=== PATIENT | female | born 1990 | race Caucasian/White ===

== ENCOUNTER 2023-08-09 16:18 | Emergency (ER) | payer SELFPAY ==
[~2023-08-09] VITALS: Ht 157.5 cm; Wt 50.0 kg
[2023-08-09 16:22] VITALS: TEMP 97.7
[2023-08-09 16:52] LABS: BASOPHILS # (AUTO) 0.1 X10'3 (0-0.2); BASOPHILS % (AUTO) 0.6 % (0-1); EOSINOPHILS % (AUTO) 0.2 % (0-6); HEMATOCRIT 47.3 % (35.0-45.0); HEMOGLOBIN 16.3 g/dl (12.0-16.0); LYMPHOCYTES # (AUTO) 1.6 X10'3 (1.1-4.8); LYMPHOCYTES % (AUTO) 17.9 % (21-51); MEAN CORPUSCULAR HEMOGLOBIN 36.9 PG (27.0-31.0); MEAN CORPUSCULAR HGB CONC 34.6 g/dL (33.0-36.5); MEAN CORPUSCULAR VOLUME 106.7 FL (78-98); MEAN PLATELET VOLUME 8.5 FL (7.4-10.4); MONOCYTES # (AUTO) 0.4 X10'3 (0-0.9); MONOCYTES % (AUTO) 4.7 % (2-12); NEUTROPHILS # (AUTO) 6.9 X10'3 (1.8-7.7); NEUTROPHILS % (AUTO) 76.6 % (42-75); PLATELET COUNT 131 X10'3 (140-440); RED BLOOD COUNT 4.43 X10'6 (4.20-5.60); RED CELL DISTRIBUTION WIDTH 14.1 % (11.5-14.5)
[2023-08-09 17:06] LABS: ALANINE AMINOTRANSFERASE 72 U/L (12-78); ALBUMIN 3.7 G/DL (3.4-5.0); ALBUMIN/GLOBULIN RATIO 0.9 (1.1-1.5); ALKALINE PHOSPHATASE 135 IU/L (46-116); ANION GAP 10 (8-16); ASPARTATE AMINO TRANSFERASE 193 U/L (10-37); BILIRUBIN,TOTAL 2.1 MG/DL (0.1-1.0); BLOOD UREA NITROGEN 2 MG/DL (7-18); CALCIUM 8.9 MG/DL (8.5-10.1); CHLORIDE 97 MMOL/L (99-107); CREATININE 0.67 MG/DL (0.40-0.90); GLUCOSE 188 MG/DL (70-104); POTASSIUM 3.5 MMOL/L (3.5-5.1); SODIUM 136 MMOL/L (135-145); TOTAL CARBON DIOXIDE 29.4 MMOL/L (24-32); TOTAL PROTEIN 7.9 G/DL (6.4-8.2); eCRCL 96 ML/MIN; eGFR > 90 ML/MIN
[2023-08-09 17:15] LABS: PRO BRAIN NATRIURETIC PEPTIDE 70 PG/ML (0-125)
[2023-08-09 22:30] VITALS: BP 141/93; PULSE 73; RESP 14
[2023-08-09 22:31] VITALS: O2SAT 100
[2023-08-09 23:02] LABS: D-DIMER 0.47 MG/L FEU (0-0.50)
[2023-08-09] MEDS ORDERED: iohexol 350MG/ML 100ml bottle IV ONE (23:12)
[2023-08-09 23:18] LABS: HCG SERUM QL NEGATIVE
[2023-08-09] MEDS ORDERED: normal saline 1000ML IV soln IVB ONE (23:25)
[2023-08-09 23:30] LABS: ALANINE AMINOTRANSFERASE 71 U/L (12-78); ALBUMIN 3.6 G/DL (3.4-5.0); ALBUMIN/GLOBULIN RATIO 0.9 (1.1-1.5); ALKALINE PHOSPHATASE 128 IU/L (46-116); ANION GAP 15 (8-16); BILIRUBIN,TOTAL 2.7 MG/DL (0.1-1.0); BLOOD UREA NITROGEN 2 MG/DL (7-18); BUN/CREATININE RATIO 2.9 (10.0-20.0); CALCIUM 8.8 MG/DL (8.5-10.1); CHLORIDE 95 MMOL/L (99-107); CREATININE 0.69 MG/DL (0.40-0.90); GLUCOSE 141 MG/DL (70-104); SODIUM 134 MMOL/L (135-145); TOTAL CARBON DIOXIDE 23.9 MMOL/L (24-32); TOTAL PROTEIN 7.8 G/DL (6.4-8.2); eCRCL 93 ML/MIN; eGFR > 90 ML/MIN
[2023-08-09 23:36] LABS: ASPARTATE AMINO TRANSFERASE 187 U/L (10-37)
[2023-08-09 23:37] LABS: THYROID STIMULATING HORMONE 1.12 ulU/ml (0.34-4.50)
[2023-08-09 23:38] LABS: POTASSIUM 2.9 MMOL/L (3.5-5.1)
[2023-08-09] MEDS ORDERED: potassium Cl 20 mEq SR tablet PO ONE (23:40)
[2023-08-10 00:24] LABS: BILIRUBIN,URINE NEGATIVE (Neg); CLARITY,URINE SLIGHTLY CLOUDY (Clear); COLOR,URINE YELLOW (Yellow); GLUCOSE, URINE NEGATIVE (Neg); KETONES,URINE NEGATIVE (Neg); LEUKOCYTE ESTERASE ,URINE NEGATIVE (Neg); NITRITES, URINE POSITIVE (Neg); OCCULT BLOOD,URINE NEGATIVE (Neg); PROTEIN,URINE 30 mg/dl (Neg); UROBILINOGEN,URINE 0.2 E.U/dL (0.2-1.0)
[2023-08-10 00:30] LABS: UA COLLECTION TYPE CLN CATCH MIDSTREAM
[2023-08-10 00:34] LABS: BACTERIA,URINE 4+ /HPF (Neg); MUCUS STRANDS NONE SEEN /LPF (Neg); RBC,URINE 0-2 /HPF (0-2); SQUAMOUS EPITHELIAL CELL,UR MANY /LPF (FEW)
[2023-08-10 00:36] LABS: TRANSITIONAL EPI CELLS,URINE FEW /HPF; WBC,URINE 0-4 /HPF (0-4)
[2023-08-10 00:45] LABS: URINE AMPHETAMINE SCREEN NEGATIVE (Neg); URINE BARBITUATE SCREEN NEGATIVE (Neg); URINE BENZODIAZEPINES SCREEN NEGATIVE (Neg); URINE CANNABINOID SCREEN POSITIVE (Neg); URINE COCAINE SCREEN NEGATIVE (Neg); URINE METHADONE SCREEN NEGATIVE (Neg); URINE OPIATE SCREEN NEGATIVE (Neg); URINE PHENCYCLIDINE SCREEN NEGATIVE (Neg)
[2023-08-10] MEDS ORDERED: POTA-207 PO (02:07)
--- NOTE | 2023-08-10 02:26 | NUR ---
iv dc'd pt being discharge dressing applied
== END 2023-08-10 02:27 | disposition home or self-care (01) ==
LOC: ER 16:20
DX: R06.02 Shortness of breath (principal); Z20.822 Contact with and (suspected) exposure to COVID-19; E87.6 Hypokalemia; R07.9 Chest pain, unspecified
CPT/HCPCS: 36415; 71045; 71275; 80053; 80305; 80320; 81001; 82948; 83605; 83880; 84145; 84443; 84484; 84703; 85025; 85379; 87040; 87077; 87186; 87502; 87503; 87811; 93005; 96360; 99285; J7030; Q9967

== ENCOUNTER 2025-07-20 11:14 | Inpatient (IN) | payer MEDICAID ==
[~2025-07-20] VITALS: Ht 160 cm; Wt 53.3 kg
[2025-07-20 11:52] LABS: MEAN PLATELET VOLUME 8.1 FL (7.4-10.4); RED CELL DISTRIBUTION WIDTH 14.9 % (11.5-14.5)
[2025-07-20 12:07] LABS: CREATININE 0.69 MG/DL (0.40-0.90); TOTAL CARBON DIOXIDE 24.7 MMOL/L (24-32); eCRCL 96 ML/MIN; eGFR > 90 ML/MIN
[2025-07-20 12:11] LABS: EOSINOPHILS % (MANUAL) 1.0 % (0-6); LYMPHOCYTES % (MANUAL) 4.0 % (21-51); MONOCYTES % (MANUAL) 3.0 % (2-12); NEUTROPHILS % (MANUAL) 92.0 % (42-75); PLATELET ESTIMATE NORMAL
--- NOTE | 2025-07-20 12:26 | Physician Documentation ---
History of Present Illness Chief Complaint: Abdominal Pain Stated Complaint: ABD SWELLING Time Seen by MD: 12:04 OK to notify your PCP?: Yes Primary Medical Doctor: none Source: patient Mode of Arrival: POV Exam Limitations: no limitations HPI 34-year-old female with chief complaint right upper quadrant abdominal pain which started three weeks ago and got progressively worse over the past week which is why she decided to come in today. She states that the pain is worse if she tries to eat or drink anything. The pain will become almost unbearable after eating or drinking. She has never had any abdominal surgeries. She denies any vomiting, diarrhea or constipation. She does report a history of alcoholism but has been sober for "3months working on 4". No known liver disease. No fever, chills, shortness of breath, chest pain, urinary symptoms, LE edema. Uses marijuana but denies any other drug abuse. Patient has not noticed any discoloration of her eyes or skin despite having scleral icterus and petechiae. Medication Reconciliation Allergies: Coded Allergies: lobster (Verified Allergy, Unknown, THROAT ITCHY, 07/20/25) Past Medical History Past Medical History: No Pertinent History Past Surgical History: No History Of: abdominal surgery Alcohol Use: Sober Drug Use: marijuana Lives In: Home Review of Systems All Other Systems at this time: Reviewed and Negative Physical Exam Vital Signs: Temperature: 98.8, Source: Temporal, Heart Rate: 132, Respiratory Rate: 16, BP: 103/73, Pulse Oximetry: 96, Weight: 53.300 Oxygen Flow Rate: 0 Physical Exam GENERAL: CONVERSATION, PLEASANT FEMALE, ALERT, IN NAD. HEENT: NCAT, EOMI, PERRL, SCLERAL ICTERUS, normal oropharynx, moist oral mucosa. NECK: Supple, trachea midline. CARDIAC: ELEVATED RATE, Regular rhythm, no murmurs, rubs, or gallops. Equal distal pulses. No lower extremity edema, cap refill less than 2 seconds. RESPIRATORY: Equal breath sounds, clear to auscultation bilaterally, no respiratory distress. GASTROINTESTINAL: ABDOMEN IS DISTENDED BUT SOFT WITH +FLUID WAVE. TTP OVER RUQ, +MURPHYS SIGN, LIVER ENLARGED PALPABLE BELOW THE LOWER RIB. MUSCULOSKELETAL: Normal range of motion, nontender, no swelling. NEUROLOGICAL: Awake, alert, and oriented x 3. SKIN: Warm/dry, no pallor, PETECHIAE ARE ALL OVER FACE, UPPER CHEST AND ARMS. PSYCH: Alert and appropriate. Affect congruent with mood. Speech is clear. Good eye contact. Progress Progress Note MELD SCORE CALCULATED USING THE ORIGINAL FORMULA: 22 WHICH IS 19.6% MORTALITY IN 3MONTHS Results/Orders Reviewed/noted all lab results: Yes Results/Orders Orders - DIA FENG Electrocardiogram (07/20/25 12:16) MG (07/20/25 12:16) Culture Blood (07/20/25 12:16) Chest,Single View (07/20/25 12:16) Procalcitonin (07/20/25 12:16) Lacticsepsis (07/20/25 12:16) Ct Abdomen Pelvis (07/20/25 12:16) Normal Saline 1000ml (0.9% Sodium Chlori (07/20/25 12:20) Vital Signs 07/20/25 07/20/25 11:27 12:18 Temp 98.8 Pulse 141 132 Resp 18 16 B/P (MAP) 136/87 103/73 (83) Pulse Ox 97 96 O2 Flow Rate 0 Laboratory Tests Test 07/20/25 11:44 White Blood Count 25.4 *H Red Blood Count 3.22 L Hemoglobin 11.6 L Hematocrit 34.8 L Mean Corpuscular Volume 108.1 H Mean Corpuscular Hemoglobin 36.1 H Mean Corpuscular Hemoglobin Concent 33.4 Red Cell Distribution Width 14.9 H Platelet Count 181 Mean Platelet Volume 8.1 Neutrophils (%) (Auto) 85.2 H Lymphocytes (%) (Auto) 6.8 L Monocytes (%) (Auto) 7.1 Eosinophils (%) (Auto) 0.5 Basophils (%) (Auto) 0.4 Neutrophils # (Auto) 21.7 H Lymphocytes # (Auto) 1.7 Monocytes # (Auto) 1.8 H Eosinophils # (Auto) 0.1 Basophils # (Auto) 0.1 CBC Comment Differential Total Cells Counted 100 Neutrophils % (Manual) 92.0 H Lymphocytes % (Manual) 4.0 L Monocytes % (Manual) 3.0 Eosinophils % (Manual) 1.0 Platelet Estimate Normal Red Blood Cell Morphology Perf Hypochromasia 1+ Basophilic Stippling Macrocytosis 1+ Stomatocytes Few Sodium Level 135 Potassium Level 3.3 L Chloride Level 102 Carbon Dioxide Level 24.7 Anion Gap 8 Blood Urea Nitrogen 6 L Creatinine 0.69 Estimated GFR/1.73 m2 > 90 BUN/Creatinine Ratio 8.7 L Glucose Level 94 Calcium Level 8.1 L Total Bilirubin 10.3 H Aspartate Amino Transf (AST/SGOT) 96 H Alanine Aminotransferase (ALT/SGPT) 27 Alkaline Phosphatase 372 H Total Protein 7.3 Albumin 2.0 L Globulin 5.3 H Albumin/Globulin Ratio 0.4 L Lipase > 375 H Chemistry Comments EKG/XRAY/CT/US/VASC/MRI Chest X-Ray : Additional Comments CLINICAL HISTORY: SEPSIS TECHNIQUE: Single view of the chest was obtained. COMPARISON: CT CTA CHEST PE on DOS: 08/09/23, DI CHEST,SINGLE VIEW on DOS: 08/09/23 FINDINGS: The heart size and pulmonary vasculature normaln. There are bibasilar opacities. IMPRESSION: Bibasilar opacities, likely atelectases and or infection with small left pleural effusion. : Impression COMPUTERIZED TOMOGRAPHY ABDOMEN AND PELVIS WITH CONTRAST REASON FOR EXAM: ABD PAIN. Jaundice. COMPARISON: US ULTRASOUND OF ABDOMEN on DOS: 07/20/25 TECHNIQUE: The exam was performed on a Multidetector scanner. Spiral scans were acquired from the diaphragm to the symphysis pubis after administration of IV contrast. 2-D coronal and sagittal reformatted images were provided. Radiation optimization: All CT scans at this facility use at least one of these dose optimization techniques: Automated exposure control mA and/or kV adjustment per patient size (includes targeted exams where dose is matched to clinical indication) or iterative reconstruction. CONTRAST ADMINISTRATION: 100 mL omnipaque 300 intravenously RADIATION DOSE: CTDI: 9 mGy DLP: 462 mGy-cm FINDINGS: There is small left pleural effusion. There is partial consolidation of the left lower lobe of the lung. There is mild dependent atelectasis in the right lower lobe. The spleen is not enlarged. The liver is enlarged. There are numerous hypoenhancing nodular masses throughout the liver concerning for diffuse hepatocellular disease versus metastatic disease. There is a moderate amount of ascites. There is gallbladder wall thickening, nonspecific. No calcified gallstone is identified. There is heterogeneous hypoenhancement of the head and uncinate process of the pancreas. The body and tail of the pancreas are unremarkable. The pancreatic duct is not dilated. There are prominent lower esophageal varices. The adrenal glands are normal. The kidneys enhance symmetrically. No solid renal mass is identified. There is no hydronephrosis of either kidney. There is no abdominal aortic aneurysm. The uterus and ovaries are within normal limits. There is a large venous portosystemic shunt from the portal vein to the retroperitoneum. No pathologic lymphadenopathy is identified by size criteria. There is thickening of proximal jejunal loops that may represent portal hypertensive enteropathy. The urinary bladder is decompressed and is not well evaluated. The colonic stool burden is small. The appendix is not seen. No acute osseous abnormality is identified. IMPRESSION: Hypoenhancing nodular masses throughout the liver concerning for diffuse hepatocellular disease versus metastatic disease. Liver MRI without and with contrast is recommended. Moderate ascites Esophageal varices and other portosystemic venous shunts are seen consistent with portal hypertension. Thickened proximal jejunum may represent portal hypertensive enteropathy. Small left pleural effusion. Partial consolidation of the left lower lobe. Medical Decision Making Differential Dx:Considerations: Include: AAA, -Complete, - Incomplete, -Inevitable, -Missed, -Threatened, Abruptio placentae, Angina/AK, Aortic dissection, Appendicitis, Bowel obstruction, Chola ngitis, Cholelithasis, Constipation, Diverticular disease, Esophageal rupture, Esophagitis, Gastritis/PUD, Gastroenteritis, GI hemorrhage, Hernia, Hepatitis, Inflammatory BD, Ischemic bowel, Ovarian cyst/torsion, Pancreatitis, PID, Porphyria, Trauma, intraabdominal, Urinary obstruction, Urinary tract infection, Urolithiasis, Other Additional Comments Patient's u/s is negative for gallbladder etiology-no gallstones, no enlarged ducts. Patient's CT scan shows portal hypertension with varices, hepatomegaly and masses in liver. I have low suspicion for malignancy given history but will get MRI with liver protocol. Dr. Smith has agreed to accept the patient as long as patient's insurance will cover and assuming that patient does not have diagnosis of metastatic cancer. He wants cultures of urine, blood, and from ascites if possible. He wants zosyn as the antibiotic. He stated he will contact us on Wednesday or we can contact him on Wednesday for transfer. Departure Admitted to Inpatient Unit: to hospitalist Impression: Primary Impression: Decompensated liver disease Additional Impressions: RUQ abdominal pain Ascites Qualified Codes: R18.8 - Other ascites Jaundice Condition: Fair Referrals: NO PRIMARY CARE PROVIDER (PCP) Education Educated: Patient Educated regarding: diagnosis Signature Scribe Signature: X Attestation: DIA BROWN Jul 20, 2025 12:26
--- NOTE | 2025-07-20 12:28 | ELECTROCARDIOGRAPH REPORT ---
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 Ger Talamantes Measurements Intervals [place] Rate: 121 P: 67 NC: 135 QRS: 38 QRSD: 90 T: 16 QT: 333 QTc: 473 Interpretive Statements Sinus tachycardia Borderline T wave abnormalities Electronically Signed On 07-25-2025 19:23:[address] Ger Talamantes Please click the below link to view image of tracing.
[2025-07-20 12:58] LABS: APTT 34 SECONDS (22-32); INR 1.8 INR
[2025-07-20] MEDS: normal saline 1000ml 2,000 ML IV ONE (13:11)
--- NOTE | 2025-07-20 13:39 | RADIOLOGY REPORT ---
INDICATION: abdominal pain, jaundice TECHNIQUE: Multiple real-time sonographic images of the abdomen were obtained. COMPARISON: None FINDINGS: The liver is heterogeneous in echogenicity. The liver measures 21 cm. No intrahepatic biliary ductal dilatation is noted. The gallbladder wall measures 0.3 cm and is unremarkable. No gallstones or sludge is seen. The common duct measures 0.2 cm and is unremarkable. No pericholecystic fluid is noted. The right kidney measures 10cm. No hydronephrosis. The pancreas is not well visualized due to obscuration from bowel gas. The visualized portions of the IVC and aorta are grossly unremarkable. IMPRESSION: Hepatomegaly/hepatic steatosis. Small volume ascites.
--- NOTE | 2025-07-20 14:20 | RADIOLOGY REPORT ---
CLINICAL HISTORY: SEPSIS TECHNIQUE: Single view of the chest was obtained. COMPARISON: CT CTA CHEST PE on DOS: 08/09/23, DI CHEST,SINGLE VIEW on DOS: 08/09/23 FINDINGS: The heart size and pulmonary vasculature normaln. There are bibasilar opacities. IMPRESSION: Bibasilar opacities, likely atelectases and or infection with small left pleural effusion.
[2025-07-20 14:41] LABS: URINE HCG NEGATIVE (NEG)
[2025-07-20] MEDS ORDERED: iohexol 300mg/ml 100ml inj. ONE (14:43)
[2025-07-20 14:46] LABS: UA COLLECTION TYPE URINAL
[2025-07-20 14:47] LABS: MUCUS STRANDS MANY /LPF (Neg); SQUAMOUS EPITHELIAL CELL,UR MANY /LPF (FEW); URINE AMPHETAMINE SCREEN NEGATIVE (Neg); URINE BARBITUATE SCREEN NEGATIVE (Neg); URINE BENZODIAZEPINES SCREEN NEGATIVE (Neg); URINE CANNABINOID SCREEN POSITIVE (Neg); URINE COCAINE SCREEN NEGATIVE (Neg); URINE METHADONE SCREEN NEGATIVE (Neg); URINE OPIATE SCREEN NEGATIVE (Neg); URINE PHENCYCLIDINE SCREEN NEGATIVE (Neg)
--- NOTE | 2025-07-20 15:26 | RADIOLOGY REPORT ---
COMPUTERIZED TOMOGRAPHY ABDOMEN AND PELVIS WITH CONTRAST REASON FOR EXAM: ABD PAIN. Jaundice. COMPARISON: US ULTRASOUND OF ABDOMEN on DOS: 07/20/25 TECHNIQUE: The exam was performed on a Multidetector scanner. Spiral scans were acquired from the diaphragm to the symphysis pubis after administration of IV contrast. 2-D coronal and sagittal reformatted images were provided. Radiation optimization: All CT scans at this facility use at least one of these dose optimization techniques: Automated exposure control mA and/or kV adjustment per patient size (includes targeted exams where dose is matched to clinical indication) or iterative reconstruction. CONTRAST ADMINISTRATION: 100 mL omnipaque 300 intravenously RADIATION DOSE: CTDI: 9 mGy DLP: 462 mGy-cm FINDINGS: There is small left pleural effusion. There is partial consolidation of the left lower lobe of the lung. There is mild dependent atelectasis in the right lower lobe. The spleen is not enlarged. The liver is enlarged. There are numerous hypoenhancing nodular masses throughout the liver concerning for diffuse hepatocellular disease versus metastatic disease. There is a moderate amount of ascites. There is gallbladder wall thickening, nonspecific. No calcified gallsto ne is identified. There is heterogeneous hypoenhancement of the head and uncinate process of the pancreas. The body and tail of the pancreas are unremarkable. The pancreatic duct is not dilated. There are prominent lower esophageal varices. The adrenal glands are normal. The kidneys enhance symmetri jose. No solid renal mass is identified. There is no hydronephrosis of either kidney. There is no abdominal aortic aneurysm. The uterus and ovaries are within normal limits. There is a large venous portosystemic shunt from the portal vein to the retroperitoneum. No pathologic lymphadenopathy is identified by size criteria. There is thickening of proximal jejunal loops that may represent portal hypertensive enteropathy. The urinary bladder is decompressed and is not well evaluated. The colonic stool burden is small. The appendix is not seen. No acute osseous abnormality is identified. IMPRESSION: Hypoenhancing nodular masses throughout the liver concerning for diffuse hepatocellular disease versus metastatic disease. Liver MRI without and with contrast is recommended. Moderate ascites Esophageal varices and other portosystemic venous shunts are seen consistent with portal hypertension. Thickened proximal jejunum may represent portal hypertensive enteropathy. Small left pleural effusion. Partial consolidation of the left lower lobe.
[2025-07-20] MEDS: CefTRIAXone 2gm/D5W 50ml BAG 50 ML IV ONE (16:22)
[2025-07-20] MEDS ORDERED: magnesium Cl slow-release 64mg tablet PO PRN (18:50)
[2025-07-20] MEDS ORDERED: mag hydrox/Alum hydrox/simeth 30ml oral suspension PO PRN (18:50)
[2025-07-20] MEDS ORDERED: potassium Cl 20 mEq SR tablet PO PRN (18:50)
[2025-07-20] MEDS ORDERED: magnesium sulf-water 2g/50mL 50 ML IV PRN (18:50)
[2025-07-20] MEDS ORDERED: haloperidol lactate 5mg/ml inj IM PRN (18:50)
[2025-07-20] MEDS ORDERED: dextrose 50%-water 50ml dispensing syringe IV PRN (18:50)
[2025-07-20] MEDS ORDERED: potassium Cl 40MEQ/1/2NS 520ml 520 ML IV PRN (18:50)
[2025-07-20] MEDS ORDERED: magnesium sulf-water 4G/100mL 100 ML IV PRN (18:50)
[2025-07-20] MEDS ORDERED: diazepam inj 5 MG/ML inj. IV PRN (18:50)
[2025-07-20] MEDS ORDERED: ondansetron/PF 4mg/2ml inj IV PRN (18:50)
[2025-07-20] MEDS ORDERED: lactulose 20gm/30ml cup PO SCH (19:10)
[2025-07-20] MEDS ORDERED: pantoprazole 40MG/NS 100ML BAG 100 ML IV SCH (19:10)
[2025-07-20] MEDS ORDERED: CefTRIAXone/D5W-Rocephin 1gm 50 ML IV SCH (19:15)
[2025-07-20] MEDS: HYDROcodone/acetaminophen 5mg/325mg tablet PO PRN (19:16)
[2025-07-20] MEDS: lactulose 20gm/30ml cup PO SCH (19:16)
[2025-07-20] MEDS: normal saline 1000ml 1,000 ML IV SCH (19:17)
--- NOTE | 2025-07-20 19:18 | HISTORY AND PHYSICAL-Residence ---
History & Physical Providers to CC Resident Creating Document: JA RUBOI RES CC: ISABEL BRADFORD MD ~ History of Present Illness Primary Medical Doctor: none Reason for Admit\Complaint: Abdominal Pain History of Present Illness This is a 34-year-old female with past medical history of GERD, alcoholic use disorder, presented to ER with complaint of right upper quadrant pain since 2 weeks, she states that pain is constant and rates it 8/10 in intensity , hotbath improves her pain but pain never goes away completely, her pain radiates to the left upper quadrant and occasionally to the back. She denies any associated shortness of breath, chest pain,hematemesis, blood in stool or fever. In addition to that She is also experiencing bloating for the past three weeks. During this time she did not took anything for the pain. ED provider shannan diallo talked to [facility] [place] with [place]. Smith and he has agreed to accept the patient as long as patient's insurance will cover and assuming that patient does not have diagnosis of metastatic cancer. He wants cultures of urine, blood, and from ascites if possible. He wants zosyn as the antibiotic. He stated he will contact us on Wednesday or we can contact him on Wednesday for transfer. This is her 1st episode of abdominal pain. She has no PCP and Express Manager, she never had a colonoscopy and endoscopy. She is allergic to lobster, developed coughing and neck swelling She is also allergic to nickael, she developed rash while wearing nickel jewelery. Allergies: Coded Allergies: lobster (Verified Allergy, Unknown, THROAT ITCHY, 07/20/25) Home Medications Home Medications Active Past Medical History Past Medical History GERD Past Surgical History Surgical History Comment Denies any past surgical history. 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 ROS All Other Systems: Reviewed and Negative ROS Constitutional: No fever, chills, dizziness, weakness, weight gain or loss Eyes: No pain, erythema, discharge, blurring of vision ENT: No sore throat, epistaxis, tinnitus Cardiovascular: No chest pain, chest pressure, chest discomfort, palpitations, syncope, lower extremity edema, paroxysmal nocturnal dyspnea Respiratory: No shortness of breath, cough, hemoptysis Gastrointestinal: no nausea, no vomitting, mo melena or hematochezia, no constipation ,no diarrhea, reports pain in RUQ Genitourinary: No frequency, urgency, nocturia, hematuria or dysuria Musculoskeletal: No arthralgias or myalgias Integumentary: No change in skin, hair, nails,No swelling, abrasions. Neurologic: No headache, neck pain, numbness or tingling of the extremities, weakness Psychiatric: No delusions, depression,no hallucinations, no suicidal ideations Endocrine: No fatigue, weakness, polydipsia, polyuria, change in appetite, heat or cold intolerance, dry skin,no sweating Hematological: No bleeding, petechiae,bruises Exam Vitals: Vital Signs Date Time Temp Pulse Resp B/P (MAP) Pulse Ox O2 Delivery O2 Flow Rate FiO2 07/20/25 18:49 98.8 125 18 121/68 (85) 99 0 General: General: awake, alert oriented to place, time, and person HEENT: Pallor present, eyes icteric moist mucous membranes Neck: No masses and tenderness Resp: Unlabored. Lungs clear to auscultation bilaterally. Chest: Normal expansion, Multiple spinger agiomas noted Cardiovascular: Regular Rate and rhythm, normal S1 and S2 without murmur, rub or gallop Abdomen: Hard and non tender abdomen in right upper quadrant, no organomegaly, no guarding and rigidity, bowel sounds present, dullnes on percussion due to fluid. Neuro: No focal weaknesenders in the upper and lower limb muscles, power of the muscles 5/5 bilateral upper and lower extremities, normal reflexes bilaterally. Cranial nerves intact Extremities: No cyanosis,clubbing or edema MusculoSkeletal: No joint Deformities, No back tenderness. Skin: Warm and Dry. 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 Moderate ascites Esophageal varices and other portosystemic venous shunts are seen consistent with portal hypertension. Thickened proximal jejunum may represent portal hypertensive enteropathy. Small left pleural effusion. Partial consolidation of the left lower lobe. Abdominal US: Hepatomegaly/hepatic steatosis. Small volume ascites. Follow up with ct abd pelvis with triple phase contrast Started patient on antibiotic zoysn day 1 In view of esophageal varices,started patient on carvediolol day 1 In view of risk of developing hepatic encephalopathy, started patient on lactulose, ammonia is normal In view of ascites ordered paracentesis, follow up with fluid analysis. Jaundice due to Hyperbilirubinemia total bilirubin 10.3 AST: 96 ALT: 27 ALP: 372 Lipase > 375 PT 17.7 INR 1.8 APTT 34 Please Repeat all above labs CT Abdomen/Pelvis shows Hypoenhancing nodular masses throughout the liver concerning for diffuse hepatocellular disease versus metastatic disease. Liver MRI without and with contrast is recommended. Moderate ascites Esophageal varices and other portosystemic venous shunts are seen consistent with portal hypertension. Thickened proximal jejunum may represent portal hypertensive enteropathy. Small left pleural effusion. Partial consolidation of the left lower lobe. Abdominal US: Hepatomegaly/hepatic steatosis. Small volume ascites. Please monitor patient, as she is at risk of bleeding. 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 Hgb: 11.6 Hct: 34.8 MCV: 108.1 Follow up withi iron panel and vitamin B12 Alcohol Use Disorder Patient placed on moderate alcohol use disorder Substance Use Navigator and event services manager Consulted She reports she is alcohol free since 08 June 2025 Marijuana Use Disoder Substance Use Navigator and event services manager Consulted Hypokalemia K 3.[address] Follow up with CMP GERD Started patient on IV pantoprazole 40 mg DVT Prophylaxis: SCD Code Status: Full Code Disposition: We will continue to monitor, please keep an eye on patient due to risk of bleeding she will likely be transferred to other facility on Wednesday. JA RUBIO PGY 1 RESIDENT INTERNAL MEDICINE Date of Service: Jul 20, 2025 Billing Provider: ISABEL BRADFORD MD, SANJAY, RES Jul 20, 2025 19:18
[2025-07-20 19:28] LABS: PRO BRAIN NATRIURETIC PEPTIDE 241 PG/ML (0-125)
[2025-07-20 20:01] LABS: LACTATE DEHYDROGENASE 383 U/L (81-234)
[2025-07-20] MEDS: piperacillin/tazo 3.375gm/50ml 50 ML IV SCH (20:02)
[2025-07-20] MEDS: thiamine 100mg/ml 2ml inj. IV SCH (20:06)
[2025-07-20] MEDS ORDERED: PANT-47 PO (20:13)
[2025-07-20] MEDS: K and/or MAG REPLACEMENT MC SCH (20:25)
[2025-07-20] MEDS: potassium Cl 20 mEq SR tablet PO PRN (22:42)
[2025-07-20 23:21] VITALS: BP 102/54; PULSE 108; RESP 18; TEMP 98; O2SAT 94
[2025-07-20] MEDS: HYDROcodone/acetaminophen 10/325mg tab PO PRN (23:47)
[2025-07-21] VITALS (9 sets, daily range): BP systolic 91–119; BP diastolic 53–83; PULSE 93–102; RESP 16–22; TEMP 97.6–98.5; O2SAT 93–98
[2025-07-21 07:58] LABS: MEAN PLATELET VOLUME 8.2 FL (7.4-10.4); RED CELL DISTRIBUTION WIDTH 16.1 % (11.5-14.5)
[2025-07-21 08:20] LABS: CREATININE 0.64 MG/DL (0.40-0.90); LDL CHOLESTEROL 116 MG/DL (50-100); TOTAL CARBON DIOXIDE 21.0 MMOL/L (24-32); eCRCL 103 ML/MIN; eGFR > 90 ML/MIN
[2025-07-21 08:37] LABS: PHOSPHORUS 2.1 MG/DL (2.3-4.5)
[2025-07-21 08:39] LABS: CHOL/HDL RATIO 11.9 (0.00-4.99)
[2025-07-21 09:17] LABS: EOSINOPHILS % (MANUAL) 5.0 % (0-6); LYMPHOCYTES % (MANUAL) 6.0 % (21-51); MONOCYTES % (MANUAL) 1.0 % (2-12); NEUTROPHILS % (MANUAL) 88.0 % (42-75); PLATELET ESTIMATE DECREASED
[2025-07-21] MEDS ORDERED: iohexol 300mg/ml 100ml inj. ONE (10:03)
[2025-07-21] MEDS: multivitamins, therapeutics tablet PO SCH (10:04)
[2025-07-21] MEDS: folic acid 1mg/0.2ml inj IV SCH (10:04)
--- NOTE | 2025-07-21 15:18 | RADIOLOGY REPORT ---
CLINICAL INFORMATION: Acute liver failure, cirrhosis, liver masses, concern for malignancy. TECHNIQUE: Axial CT images of the abdomen and pelvis were obtained after the uneventful administration of 100 mL Omnipaque 300 IV contrast. Coronal and sagittal reformatted images were obtained, reviewed, and stored. All CT scans at this medical facility are performed using dose modulation techniques as appropriate to a performed exam including the following: Automated exposure control was utilized; adjustment of the MA and/or KV according to patient size; and use of iterative reconstruction technique. CTDIvol = 10.48, 10.16, 10.0, 9.84, 0.14 mGy DLP = 1628.12 mGy-cm COMPARISON: CT CT ABDOMEN PELVIS W/ IV CONTRAST on DOS: 07/20/25, US ULTRASOUND OF ABDOMEN on DOS: 07/20/25 FINDINGS: Lung bases: Small left pleural effusion with overlying atelectasis partially visualized. Mild dependent atelectasis in the right lower lobe. Liver: Cirrhotic liver morphology with nodular contour and relative enlargement of the left hepatic lobe. Heterogeneous density of the liver on the precontrast images. Heterogeneous enhancement of the liver on the arterial phase images. No discrete arterial enhancing lesion demonstrated. No washout enhancement demonstrated. Biliary: Gallbladder appears partially contracted. No calcified gallstones visualized. Spleen: Unremarkable. Pancreas: Unremarkable. No inflammatory changes, ductal dilatation, or mass identified. Adrenal glands: Left adrenal nodule measures up to 1.5 cm, with indeterminate density on the precontrast images. Appears to be increased in size compared to the prior CTA chest exam dated 08/09/2023, when it measured 0.8 cm Kidneys: No hydronephrosis or mass. Aorta/Vascular: No abdominal aortic aneurysm. Similar-appearing varices are seen in the abdomen and pelvis. Retroperitoneum: No mass or lymphadenopathy. Bowel/mesentery: Moderate abdominal and pelvic ascites. Nonspecific mildly distended fluid-filled small bowel loops with no transition point to suggest small bowel obstruction. Appendix is visualized and appears unremarkable. Nonspecific areas of wall thickening in the colon, may be due to 3rd spacing of fluid. Pelvic organs: Grossly unremarkable. Bladder: Underdistended and not well evaluated. Abdominal wall: Moderate anasarca. Bones: No acute fracture or focal intraosseous lesion. IMPRESSION: 1. Extensive heterogeneity of the liver on pre and postcontrast images. No discrete arterially enhancing lesion or washout enhancement is seen on this exam to suggest a focal malignancy in the liver. Correlate with clinical findings. If clinically indicated, MRI could be considered. 2. Cirrhotic liver morphology. 3. Moderate ascites. 4. Small left pleural effusion. 5. Areas of wall thickening of the colon are nonspecific, possibly due to 3rd spacing of fluid. 6. Nonspecific nondilated fluid-filled small bowel loops. Findings may be seen with ileus or enteritis in the appropriate clinical setting. No small bowel obstruction. 7. Additional findings as detailed above.
--- NOTE | 2025-07-21 16:24 | PROGRESS NOTE- Residence ---
Progress Note - Resident Providers to CC Resident Creating Document: BENITA BANUELOS RES ~ Antibiotic Timeout Antibiotic Ordered?: Yes Subjective Patient seen and examined at bedside. Complaints of pain in the right upper quadrant. Denies hematemesis/melena. She just had a bowel movement. No other concerns or complaints at this time. Objective Vital Signs Date Time Temp Pulse Resp B/P (MAP) Pulse Ox O2 Delivery O2 Flow Rate FiO2 07/21/25 15:53 98.5 102 16 119/83 (95) 94 Room Air 07/20/25 22:10 1.0 07/20/25 21:22 24 Result Diagram: 07/21/25 0726 07/21/25 07 General: Jaundiced appearing Awake and Alert, no acute distress. HEENT: Conjunctiva pale, Sclera icteric, Mucus Membranes moist. Neck: Supple without masses and tenderness. Chest: Multiple spider angiomas on the upper chest and bilateral upper extremities. Resp: Unlabored. Diminished breath sounds bilaterally. Heart: Regular rhythm, normal S1 and S2, no rub, murmur or gallop. Abdomen: Distended, tenderness to deep palpation in the right upper quadrant. Dull to percussion. Normal bowel sounds x4. No guarding or rigidity. Extremities: Normal ROM, no swelling, nontender. No cyanosis,clubbing or edema. Musculoskeletal: Normal posture and gait. No joint swelling, deformity or tenderness, full range of motion and strength 5 x 5 in all extremities. BOX MAKER WOOD: No gross motor or sensory abnormalities. Skin: Icteric appearing female, multiple small spider angiomatas on the chest and upper extremities. Coagulation Studies Laboratory Tests Test 07/20/25 11:44 Prothrombin Time 17.7 SECONDS (9.0-12.0) H INR International Normalized Ratio 1.8 INR Activated Partial Thromboplast Time 34 SECONDS (22-32) H Coagulation Comments Assessment Assessment 34-year-old female with history of anxiety, GERD, alcohol use disorder presented to the ED with chief complaints of worsening abdominal pain and distention for the last three weeks.. Plan Plan Acute decompensated liver cirrhosis Multiple hypoenhancing nodular masses throughout the liver with concern for malignancy versus diffuse hepatocellular disease Portal hypertension, Esophageal varices and portosystemic shunts, Moderate ascites Sepsis secondary to above Significantly elevated white count on admission 25, procalcitonin and lactic acid within normal limits Bilirubin on admission 10, downtrending down to 7.1 today Elevated AST and ALP WBCs trending down, does not have hematemesis or melena H&H stable CT abdomen pelvis shows hypoenhancing nodular masses throughout the liver concerning for diffuse hepatocellular disease versus metastatic disease. Moderate ascites. Esophageal paresis and portosystemic shunting noted. Small left-sided pleural effusion. Urine cultures positive for Gram-negative rods, awaiting sensitivity continue Zosyn Blood cultures NGTD Continue antibiotics Zosyn, Protonix 40 IV b.i.d., lactulose 20 p.o. daily t.i.d. Coreg 3.125 p.o. b.i.d. variceal prophylaxis Talked to Dr. Prakash plastic card grader cardroom for paracentesis, awaiting recommendations, fluid to be sent for analysis and culture. ED provider HU Manriquez had talked to Dr. Smith who agreed to accept the patient as long as patient's insurance will cover and assuming that patient does not have diagnosis of metastatic cancer. He wants cultures of urine, blood, and from ascites if possible. He wants zosyn as the antibiotic. He stated he will contact us on Wednesday or we can contact him on Wednesday for transfer. CM Aware, will need to talk to [facility] for transfer on wednesday Alcohol use disorder Macrocytic anemia GERD She used to drink heavily for two years, around 500 mL of Tequila per day. States that she quit drinking 3-4 months ago. Has not had EGD/colonoscopy in the past Currently not in withdrawal, on moderate alcohol withdrawal protocol Continue Protonix 40 IV b.i.d. UTI, asymptomatic Urine cultures positive for Gram-negative rods follow up with sensitivity Continue Zosyn Hypokalemia Replacement per protocol Moderate Protein calorie malnutrition Cannabis use Substance use navigator consulted, appreciate recommendations Code Status: Full code DVT prophylaxis: SCDs, patient is ambulatory Line/tube: PIV GI prophylaxis: Protonix Nutrition: Regular diet Prognosis: Guarded Disposition: Critical, patient is extremely sick with a acute decompensated liver failure, multiple nodules with concern for malignancy. She also has esophageal varices with no active bleeding like hematemesis and melena at this time. H&H stable. If she deteriorates overnight please transfer to the ICU. Benita Banuelos MD. IM Resident PGY-3 Date of Service: Jul 21, 2025 Billing Provider: ISABEL BRADFORD MD, ELIZABETH, RES Jul 21, 2025 16:24
--- NOTE | 2025-07-21 23:48 | CARDIOLOGY REPORT ---
APPROVED REPORT EXAM: Comprehensive 2D, Doppler, and color-flow Echocardiogram. Patient Location: [facility] B Heart Rate: 106 bpm Rhythm: SINUS TACHYCARDIA Indications SHORTNESS OF BREATH Identification Printing Machine Setter: NONE Previous echo: NONE 2D Dimensions RVDd 2.4 cm IVSd 0.5 (0.7-1.1cm) LVDd 5.3 cm PWd 0.5 (0.7-1.1cm) IVSs 0.8 (0.8-1.2cm) LVDs 3.1 (2.5-4.0cm) PWs 0.8 (0.8-1.2cm) LVOT Diameter 1.94 (1.8-2.4cm) LVEF(%) 71.1 (>50%) IVC 19.90 mm FS (%) 40.7 % SV 94.4 ml CO 10.1 L/min M-Mode Dimensions Left Atrium(MM) 2.47 (2.5-4.0cm) Aortic Root 2.54 (2.2-3.7cm) Aortic Cusp Exc 1.71 (1.5-2.0cm) MV EPSS 0.4 (<0.5cm) Aortic Valve AoV Peak Pedro. 146.6 cm/s AoV VTI 24.5 cm AO Peak GR. 8.6 mmHg AO Mean GR. 5 mmHg LVOT VTI 22.77 cm LVOT Peak Pedro. 117.8 cm/s LINDA (VTI) 2.75 cm2 Mitral Valve MV E Velocity 117.8 cm/s MV Peak Gr. 6 mmHg MV DECEL TIME 162 ms MV A Velocity 121.3 cm/s MV PHT 60 ms E/A Ratio 1.0 MVA (PHT) 3.67 cm2 MV VMax 122.1 cm/s TDI Lateral E' P. V 11.77 cm/s E/Lateral E' 10.0 Tricuspid Valve TR P. Velocity 201 cm/s RAP ESTIMATE 10 mmHg TR Peak Gr. 16 mmHg RVSP 26 mmHg Pulmonary Vein S1 Velocity 42.3 cm/s D2 Velocity 67.1 cm/s PVa Velocity 39.2 cm/s PVa Duration 188 msec LEFT VENTRICLE Normal LV size and wall thickness. Overall systolic function is normal. LVEF is 65-70%. RIGHT VENTRICLE RV is normal size and function. ATRIA The left atrium size is normal. AORTIC VALVE Trileaflet AV appears normal without stenosis. No insufficiency. MITRAL VALVE Mild MV annular calcification without stenosis. Trace regurgitation. TRICUSPID VALVE TV appears structurally normal with trace regurgitation. PULMONIC VALVE Normal PV without stenosis, physiologic insufficiency. GREAT VESSELS The aortic root is normal in size. PERICARDIUM Normal pericardium. No effusion. Pleural effusion is present. What appears to be extra cardiac structure best seen in loops: 29,33,34,35,36) Other Information Study Quality: Adequate Conclusion Normal LV size and wall thickness. Overall systolic function is normal. LVEF is 65-70%. RV is normal size and function. The left atrium size is normal. Trileaflet AV appears normal without stenosis. No insufficiency. Mild MV annular calcification without stenosis. Trace regurgitation. TV appears structurally normal with trace regurgitation. Normal PV without stenosis, physiologic insufficiency. Normal pericardium. No effusion.
[2025-07-22] VITALS (7 sets, daily range): BP systolic 96–115; BP diastolic 58–78; PULSE 85–98; RESP 14–20; TEMP 97.8–98.7; O2SAT 92–96
[2025-07-22 07:03] LABS: MEAN PLATELET VOLUME 8.0 FL (7.4-10.4); RED CELL DISTRIBUTION WIDTH 14.8 % (11.5-14.5)
[2025-07-22 07:15] LABS: INR 1.9 INR
[2025-07-22 07:24] LABS: CREATININE 0.71 MG/DL (0.40-0.90); TOTAL CARBON DIOXIDE 19.5 MMOL/L (24-32); eCRCL 93 ML/MIN; eGFR > 90 ML/MIN
[2025-07-22 07:30] LABS: PHOSPHORUS 2.5 MG/DL (2.3-4.5)
[2025-07-22 14:25] LABS: LACTATE DEHYDROGENASE 304 U/L (81-234)
[2025-07-22] MEDS: MEROPENEM 1GM/NACL 50ML IVPB 50 ML IV SCH (17:12)
[2025-07-22] MEDS ORDERED: diazepam inj 5 MG/ML inj. IV PRN (18:50)
--- NOTE | 2025-07-22 20:24 | PROGRESS NOTE- Residence ---
Progress Note - Resident Providers to CC Resident Creating Document: TIRSO COHEN RES CC: ISABEL BRADFORD MD ~ Antibiotic Timeout Antibiotic Ordered?: Yes Subjective Patient seen and examined at bedside. Complains of pain in the middle of the abdomen, She denies hematemesis and melena, No other concern or complain at this time. Objective Vital Signs Date Time Temp Pulse Resp B/P (MAP) Pulse Ox O2 Delivery O2 Flow Rate FiO2 07/22/25 15:00 98.5 97 15 115/78 (90) 92 Room Air 07/20/25 22:10 1.0 07/20/25 21:22 24 Result Diagram: 07/22/2563207/22/25632 General: Jaundiced appearing Awake and Alert, no acute distress. HEENT: Conjunctiva pale, Sclera icteric, Mucus Membranes moist. Neck: Supple without masses and tenderness. Chest: Multiple spider angiomas on the upper chest and bilateral upper extremities. Resp: Unlabored. Diminished breath sounds bilaterally. Heart: Regular rhythm, normal S1 and S2, no rub, murmur or gallop. Abdomen: Distended, tenderness to deep palpation in the right upper quadrant. Dull to percussion. Normal bowel sounds x4. No guarding or rigidity. Extremities: Normal ROM, no swelling, nontender. No cyanosis,clubbing or edema. Musculoskeletal: Normal posture and gait. No joint swelling, deformity or tenderness, full range of motion and strength 5 x 5 in all extremities. SEAT COVERER: No gross motor or sensory abnormalities. Skin: Icteric appearing female, multiple small spider angiomatas on the chest and upper extremities. Coagulation Studies Laboratory Tests Test 07/20/25 11:44 07/22/25 06:33 Activated Partial Thromboplast Time 34 SECONDS (22-32) H Prothrombin Time 18.0 SECONDS (9.0-12.0) H INR International Normalized Ratio 1.9 INR Coagulation Comments Assessment Assessment 34-year-old female with history of anxiety, GERD, alcohol use disorder presented to the ED with chief complaints of worsening abdominal pain and distention for the last three weeks.. Plan Plan Acute decompensated liver cirrhosis Multiple hypoenhancing nodular masses throughout the liver with concern for malignancy versus diffuse hepatocellular disease Portal hypertension, Esophageal varices and portosystemic shunts, Moderate ascites Sepsis secondary to above Significantly elevated white count on admission 25, procalcitonin and lactic acid within normal limits WBCs trending down. Bilirubin on admission 10, downtrending down to 5.1 today Elevated AST which is trending downard and ALP is trending upward WBCs trending down. LDH 383 trending downward to 304 Amylase trending downward, and lipase >375 Follow up with amylase and lipase PT [address] abdomen pelvis shows hypoenhancing nodular masses throughout the liver concerning for diffuse hepatocellular disease versus metastatic disease. Moderate ascites. Esophageal paresis and portosystemic shunting noted. Small left-sided pleural effusion. Urine cultures positive for E-coli Dced zoysn and started patient on meropenam day 1 Preliminary blood culture shows no growth Continue, Protonix 40 IV b.i.d., lactulose 20 p.o. daily t.i.d. Coreg 3.125 p.o. b.i.d. variceal prophylaxis Talked to Dr. Prakash clay miller for paracentesis, awaiting recommendations, fluid to be sent for analysis and culture. ED provider HU Manriquez had talked to Dr. Smith who agreed to accept the patient as long as patient's insurance will cover and assuming that patient does not have diagnosis of metastatic cancer. He wants cultures of urine, blood, and from ascites if possible. He wants zosyn as the antibiotic. He stated he will contact us on Wednesday or we can contact him on Wednesday for transfer. CM Aware, will need to talk to [facility] for transfer on wednesday Alcohol use disorder Macrocytic anemia GERD She used to drink heavily for two years, around 500 mL of Tequila per day. States that she quit drinking 3-4 months ago. Has not had EGD/colonoscopy in the past Currently not in withdrawal, on moderate alcohol withdrawal protocol Continue Protonix 40 IV b.i.d. UTI, asymptomatic Urine cultures positive for E.coli Hypokalemia Resolved Replacement per protocol Moderate Protein calorie malnutrition Hyponatremia Na: 134 Follow up with urine lytes Cannabis use Substance use navigator consulted, appreciate recommendations Code Status: Full code DVT prophylaxis: SCDs, patient is ambulatory Line/tube: PIV GI prophylaxis: Protonix Nutrition: Regular diet Prognosis: Guarded Disposition: Critical, patient is extremely sick with a acute decompensated liver failure, multiple nodules with concern for malignancy. She also has esophageal varices with no active bleeding like hematemesis and melena at this time.If she deteriorates overnight please transfer to the ICU., Patient will likely be transfered tomorrow to [facility] Tirso Cohen PGY1 Internal Medicine Addendum: Requested Dr. Prakash for paracentesis. Complaints of mild epigastric abdominal pain but non tender and is tolerating solid food well without any difficulty. Urine culture showed growth of multidrug resistant E coli and antibiotic changed to meropenam 1gm iv Q8H. Also has metabolic acidosis - will continue to monitor. Discontinued fluids yesterday due to risk of fluid overload in acute decompensated cirrhosis. Did not start any lasix or spironolactone because of soft blood pressure. Is having atleast 2 bowel movements in a day. Lipase remains high and amylase trending down. T bilirubin trendiding down. Sking yellow all over the body and has bilateral scleral icterus. Will cehck if [facility] can take her tomorrow or will have to f/u out patient. Mild hyponatremia, Normal renal function. Date of Service: Jul 22, 2025 Billing Provider: ISABEL BRADFORD MD, SANJAY, RES Jul 22, 2025 20:23 CHASE JOYNER RES Jul 22, 2025 22:13
[2025-07-23] VITALS (9 sets, daily range): BP systolic 96–124; BP diastolic 50–89; PULSE 80–97; RESP 13–22; TEMP 97.1–98.2; O2SAT 91–98
[2025-07-23 06:44] LABS: MEAN PLATELET VOLUME 8.2 FL (7.4-10.4); RED CELL DISTRIBUTION WIDTH 14.9 % (11.5-14.5)
[2025-07-23 06:50] LABS: INR 1.9 INR
[2025-07-23] MEDS: piperacillin/tazo 3.375gm/50ml 50 ML IV ONE (06:59)
[2025-07-23 07:05] LABS: CREATININE 0.48 MG/DL (0.40-0.90); TOTAL CARBON DIOXIDE 20.8 MMOL/L (24-32); eCRCL 138 ML/MIN; eGFR > 90 ML/MIN
[2025-07-23 07:14] LABS: PHOSPHORUS 2.7 MG/DL (2.3-4.5)
--- NOTE | 2025-07-23 11:27 | CONSULTATION REPORT - RESIDENT ---
Consult Providers to CC Resident Creating Document: JESSE VARGHESE CC: ANNIKA KWOK MD History of Present Illness Reason for Admit\Complaint: Abdominal pain History of Present Illness This is a 34-year-old female with past medical history of GERD and alcohol use disorder who presented to ER with complaint of right upper quadrant abdominal pain. Patient is currently admitted for management of decompensated liver cirrhosis, portal hypertension and ascites. ICU team has been consulted for possible paracentesis. Allergies: Coded Allergies: lobster (Verified Allergy, Unknown, THROAT ITCHY, 07/20/25) Home Medications Home Medications Active Reported PROTONIX tablet (Pantoprazole Sodium) 40 Mg Tablet.dr 1 Tab PO DAILY 30 Days Past Medical History Past Medical History GERD Alcohol use disorder Past Surgical History Surgical History Comment None Family History Family History: FH: breast cancer (aunt breast cancer) FH: skin cancer (mom siblings skin cancer) Past Social History Social History Comment She has been smoking marijuana since 13 years She quit alcohol in May 08, 2025 before that used to drink 9 oz of Tequila about four days in a week She never smoked cigarettes, denies other illicit drug history ROS ROS All systems were reviewed and found negative except for pertinent positives mentioned in HPI Exam Vitals: Vital Signs Date Time Temp Pulse Resp B/P (MAP) Pulse Ox O2 Delivery O2 Flow Rate FiO2 07/23/25 06:00 97.7 97 14 112/75 (87) 94 Room Air 07/20/25 22:10 1.0 07/20/25 21:22 24 General: General: awake, alert oriented to place, time, and person HEENT: Marked pallor present, scleral icterus, moist mucous membranes Neck: No masses and tenderness Resp: Unlabored. Lungs clear to auscultation bilaterally. Chest: Normal expansion Cardiovascular: Regular Rate and rhythm, normal S1 and S2 without murmur, rub or gallop Abdomen: Soft and nontender, no organomegaly, no guarding and rigidity, bowel sounds present Neuro: No focal weakness in the upper and lower limb muscles, power of the muscles 5/5 bilateral upper and lower extremities, normal reflexes bilaterally. Cranial nerves intact Extremities: No cyanosis,clubbing or edema Skin: Warm and Dry. No lesions Psych: Normal affect Diagnostic Data Last Recorded Lab Results: 07/23/2562007/23/25620 Diagnostic Data: Laboratory Tests Test 07/20/25 11:44 07/23/25 06:21 Activated Partial Thromboplast Time 34 SECONDS (22-32) H Prothrombin Time 18.7 SECONDS (9.0-12.0) H INR International Normalized Ratio 1.9 INR Coagulation Comments Additional Plan Acute decompensated liver cirrhosis Portal hypertension, Esophageal varices and portosystemic shunts, Moderate ascites After performing abdominal US, not enough ascitic fluid was visualized for paracentesis. We will defer the procedure at this time Please let us know if you have any further questions or concerns Patient discussed in detail with Dr. Kwok who agrees with above plan Rest as per hospitalist team Jesse Rucker MD Internal Medicine Resident PGY-2 Date of Service: Jul 23, 2025 Billing Provider: ANNIKA KWOK MD, LEONARDO LUIS Jul 23, 2025 11:27
--- NOTE | 2025-07-23 12:52 | RADIOLOGY REPORT ---
PROCEDURE: ULTRASOUND GUIDED PARACENTESIS HISTORY: 34 Female requiring paracentesis. TECHNIQUE: The risks and benefits of the procedure including but not limited to bleeding, infection and injury to abdominal organs were explained to the patient and written informed consent was obtained. Trace fluid. IMPRESSION: Trace fluid. Too small for paracentecis.
--- NOTE | 2025-07-23 14:54 | CONSULTATION REPORT - RESIDENT ---
Consult Providers to CC Resident Creating Document: EFREMAVERY RES History of Present Illness Reason for Admit\Complaint: Abdominal distention and esophageal varices History of Present Illness A 34 years old female patient with past medical history of GERD, alcohol use disorder complaints of mild pain over the epigastric region with mild abdominal distention since 2 weeks. She endorses that her pain aggravates with food intake and mild relief with hot bath. She denies any nausea, vomiting, constipation, loose stools, chest pain, blood in stools, fever, shortness of breath, dizziness, syncope. Patient never had a EGD and colonoscopy. 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 Allergies: Coded Allergies: lobster (Verified Allergy, Unknown, THROAT ITCHY, 07/20/25) Home Medications Home Medications Active Reported PROTONIX tablet (Pantoprazole Sodium) 40 Mg Tablet.dr 1 Tab PO DAILY 30 Days Past Medical History Past Medical History GERD Alcohol use disorder Past Surgical History Surgical History Comment Patient denies any past surgical history Family History Family History: FH: breast cancer (aunt breast cancer) FH: skin cancer (mom siblings skin cancer) Past Social History Social History Comment She quit drinking alcohol from May 2025, before that she used to drink 500 mL of Tequila about 4 days in a week She smokes marijuana frequently from past 12 years Nonsmoker Denies other recreational drug use ROS ROS Constitutional: No fever, chills, dizziness, weight gain or loss, night sweats Eyes: No pain, erythema, discharge, blurring of vision ENT: No sore throat, epistaxis, tinnitus Cardiovascular:No chest pain, palpitations, syncope, lower extremity edema, paroxysmal nocturnal dyspnea Respiratory: No Shortness of breath and cough, No hemoptysis. Gastrointestinal:Reports Abdominal pain, no vomiting,nausea and melena. Normal appetite. No constipation,diarrhea, hematemesis, Musculoskeletal: No swelling or edema of extremities. Integumentary: No change in skin, hair, nails. No swelling, bruising, abrasions Neurologic: No weakness,No headache, neck pain, numbness or tingling of the extremities, Psychiatric: No delusions, depression, loss of interest in normal activity or change in sleep pattern, hallucinations, suicidal ideations Endocrine: No fatigue, no weakness. polydipsia, polyuria, change in appetite, heat or cold intolerance, sweating, dry skin Hematological: No bleeding, petechiae, bruising Allergies: No asthma or urticaria Exam Vitals: Vital Signs Date Time Temp Pulse Resp B/P (MAP) Pulse Ox O2 Delivery O2 Flow Rate FiO2 07/23/25 11:28 18 07/23/25 11:00 97.8 90 115/84 (94) 98 Room Air 07/20/25 22:10 1.0 07/20/25 21:22 24 General: Awake , alert and oriented to time,place, person,not in distress HEENT: Atraumatic, normocephalic, PERRLA, EOMI, icterus is present ; conjunctiva is pale, moist mucos membranes Neck: Trachea midline. Supple, normal range of motion, no JVD, no lymphadenopathy Chest and Respiratory: Equal breath sounds bilaterally, no tachypnea, wheezing, ronchi,rubs .Chest wall is symmetric and without deformity. Cardiac: S1, S2 heard,Regular rate and rhythm, no murmurs heard. Abdomen: Hard, nontender, no guarding and rigidity, bowel sounds heard, dullness on percussion, hepatomegaly. MSK: Range of motion of all extremities are normal. There is no joint pain or joint swelling or joint erythema. There is no muscle pain or tenderness or swelling. Extremities: warm, well-perfused, No cyanosis, clubbing, 2+ pulses felt Neurological: Speech is clear, alert, and oriented x 4. No sensory or motor deficits. Cranial nerves II-XII intact. 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 MELD Score is 23 Patient meld score suggestive for Liver Transplant GERD Portal hypertension, Esophageal varices and portosystemic venous shunts, Moderate ascites CT scan showed (07/20/25): Hypoenhancing nodular masses throughout the liver concerning for diffuse hepatocellular disease versus metastatic disease. Liver MRI without and with contrast is recommended. Moderate ascites Esophageal varices and other portosystemic venous shunts are seen consistent with portal hypertension. Thickened proximal jejunum may represent portal hypertensive enteropathy. CT scan with IV contrast showed (07/21/25): 1. Extensive heterogeneity of the liver on pre and postcontrast images. No discrete arterially enhancing lesion or washout enhancement is seen on this exam to suggest a focal malignancy in the liver. Correlate with clinical findings. If clinically indicated, MRI could be considered. 2. Cirrhotic liver morphology. 3. Moderate ascites. -Abdominal ultrasound showed mild ascitic fluid which is not enough for paracentesis ,Deferred paracentesis at this time as per Dr. Cantor recommendation. -LFTs are downtrending -Total bilirubin levels are down trended to 4.7 -Continue IV Protonix 40 mg b.i.d. daily -Continue ursodiol 300 mg b.i.d. daily -Continue lactulose 20 mg p.o. t.i.d. daily -Continue prednisolone 60 mg p.o. daily -No signs of bleeding, hematemesis, melena, - EGD when clinically stable. -Advise sodium restricted diet - Blood pressure is somewhat low, so, carvedilol intended for variceal prophylaxis has been held. Sepsis on POA UTI- Urine culture showed growth of E.Coli Hypokalemia 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 Alcohol Use Disorder Marijuana Use Disoder -continue management as per primary hospitalist team recommendation Code status: Full code DVT prophylaxis : SCDs GI prophylaxis: Protonix Nutrition: Line/tube: PIV Juanito Ramirez MD Internal Medicine Resident, PGY 1 Sepsis Screening Reassessment Date: Jul 23, 2025 Date of Service: Jul 23, 2025 Billing Provider: LALITHA ROSENBERG MD, SUNIL KUMAR, RES Jul 23, 2025 14:54 LALITHA ROSENBERG MD Jul 23, 2025 17:23
--- NOTE | 2025-07-23 16:56 | PROGRESS NOTE- Residence ---
Progress Note - Resident Providers to CC Resident Creating Document: JA RUBIO RES CC: ISABEL BRADFORD MD ~ Antibiotic Timeout Antibiotic Ordered?: Yes Subjective Patient seen and examined at bedside. Complains of pain in the middle of the abdomen, She denies hematemesis and melena, No other concern or complain at this time. Objective Vital Signs Date Time Temp Pulse Resp B/P (MAP) Pulse Ox O2 Delivery O2 Flow Rate FiO2 07/23/25 11:28 18 07/23/25 11:00 97.8 90 115/84 (94) 98 Room Air 07/20/25 22:10 1.0 07/20/25 21:22 24 Result Diagram: 07/23/2562007/23/25620 General: Jaundiced appearing Awake and Alert, no acute distress. HEENT: Conjunctiva pale, Sclera icteric, Mucus Membranes moist. Neck: Supple without masses and tenderness. Chest: Multiple spider angiomas on the upper chest and bilateral upper extremities. Resp: Unlabored. Diminished breath sounds bilaterally. Heart: Regular rhythm, normal S1 and S2, no rub, murmur or gallop. Abdomen: Distended, tenderness to deep palpation in the right upper quadrant. Dull to percussion. Normal bowel sounds x4. No guarding or rigidity. Extremities: Normal ROM, no swelling, nontender. No cyanosis,clubbing or edema. Musculoskeletal: Normal posture and gait. No joint swelling, deformity or tenderness, full range of motion and strength 5 x 5 in all extremities. PAINTER BARREL: No gross motor or sensory abnormalities. Skin: Icteric appearing female, multiple small spider angiomatas on the chest and upper extremities. Coagulation Studies Laboratory Tests Test 07/20/25 11:44 07/23/25 06:21 Activated Partial Thromboplast Time 34 SECONDS (22-32) H Prothrombin Time 18.7 SECONDS (9.0-12.0) H INR International Normalized Ratio 1.9 INR Coagulation Comments Assessment Assessment 34-year-old female with history of anxiety, GERD, alcohol use disorder presented to the ED with chief complaints of worsening abdominal pain and distention for the last three weeks.. Plan Plan Acute Decompensated Cirhosis Secondary to Alcohol Use/Malignancy cannot be ruled out due. MELD Score is 19 Child Paugh Class C, 12 points Patient Meld score suggestive for Liver Transplant Sepsis on POA SIRS critieria meet ( WBC> [id number] HR >90) Awaiting AFP, suspiciousness of malignancy, follow up with that CT Abdomen/Pelvis shows Hypoenhancing nodular masses throughout the liver concerning for diffuse hepatocellular disease versus metastatic disease. Moderate ascites Esophageal varices and other portosystemic venous shunts are seen consistent with portal hypertension. Thickened proximal jejunum may represent portal hypertensive enteropathy. Small left pleural effusion. Partial consolidation of the left lower lobe. CT Abdomen/Pelvis Triple Contrast: Extensive heterogeneity of the liver on pre and postcontrast images. No discrete arterially enhancing lesion or washout enhancement is seen on this exam to suggest a focal malignancy in the liver. Dced zoysn patient on meropenam day 2 Hepaitis panel awaiting In view of esophageal varices, continue patient on carvedilol 3.125 BID Continue Ursodiol BID daily Continue prednisone 60 mg BID In view of risk of developing hepatic encephalopathy, continue patient on lactulose, ammonia is normal Jaundice improving, hyperbilirunemia on pOA 10.3, today its 4.7 AST trending downward, ALT normal ALP trending downward Lipase and amylase trending downward PT 18.7 INR 1.9 APTT 34 Please Repeat all above labs In view of ascites ordered paracentesis, which showed trace fluid, too small for paracentecis. Please monitor patient, as she is at risk of bleeding. Consulted GI which agree to our plan and recommended EGD tomorrow Asymptomatic UTI Urine culture positive for E coli 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 Hgb: 9.8 Hct: 30 iron, ferritin normal transferin is low Follow up with Vitb12 Monitor H and H closely Alcohol Use Disorder Patient placed on moderate alcohol use disorder Substance Use Navigator and business services officer Consulted She reports she is alcohol free since 08 June 2025 Marijuana Use Disoder Substance Use Navigator and business services officer Consulted Hypokalemia K 4.[address] Follow up with CMP GERD Started patient on IV pantoprazole 40 mg DVT Prophylaxis: SCD Diet: NPO GI Prophylaxis: Protonix 40 mg Code Status: Full Code Disposition: We will continue to monitor, please keep an eye on patient due to risk of bleeding, patient is scheduled for EGD tomorrow. she will likely be transferred to other facility, we are waiting for call from [facility] so we can discuss about patient and transfer for further management. Date of Service: Jul 23, 2025 Billing Provider: ISABEL BRADFORD MD, SANJAY, RES Jul 23, 2025 16:56
[2025-07-24] VITALS (8 sets, daily range): BP systolic 104–138; BP diastolic 59–95; PULSE 80–93; RESP 11–17; TEMP 97.5–97.9; O2SAT 92–97
[2025-07-24 05:21] LABS: AFP,SERUM, TUMOR MARKER 4.6 ng/mL (0.0-6.4); HEP B CORE AB, IGM Negative (Negative)
[2025-07-24 05:21] LABS: HBSAG SCREEN Negative (Negative); HEPATITIS C VIRUS ANTIBODY Non Reactive (Non Reactive)
[2025-07-24 06:47] LABS: MEAN PLATELET VOLUME 8.3 FL (7.4-10.4); RED CELL DISTRIBUTION WIDTH 14.8 % (11.5-14.5)
[2025-07-24 07:34] LABS: INR 1.8 INR
[2025-07-24 08:02] LABS: CREATININE 0.49 MG/DL (0.40-0.90); TOTAL CARBON DIOXIDE 22.2 MMOL/L (24-32); eCRCL 135 ML/MIN; eGFR > 90 ML/MIN
[2025-07-24 08:16] LABS: PHOSPHORUS 3.1 MG/DL (2.3-4.5)
[2025-07-24] MEDS ORDERED: LIDOcaine 2% Viscous 15ml cup ONE (09:54)
[2025-07-24] MEDS ORDERED: fentaNYL/PF 50MCG/1 ML 2ML syringe ONE (10:18)
[2025-07-24] MEDS ORDERED: MIDAZolam 1 MG/ML 5ML VIAL ONE (10:18)
[2025-07-24] MEDS ORDERED: epiNEPHrine 0.1mg/ml 10ml syringe ONE (10:19)
[2025-07-24] MEDS: MIDAZolam 1 MG/ML 5ML VIAL IV ONE (11:14)
[2025-07-24] MEDS: fentaNYL/PF 50MCG/1 ML 2ML syringe IV ONE (11:14)
[2025-07-24] MEDS ORDERED: thiamine tablet PO (13:45)
[2025-07-24] MEDS ORDERED: FOLI1TAB27 PO (13:45)
[2025-07-24] MEDS ORDERED: PANT-47 PO (13:45)
[2025-07-24] MEDS ORDERED: SPIR25TA5 PO (13:45)
[2025-07-24] MEDS ORDERED: PRED10TA23 PO (13:45)
[2025-07-24] MEDS ORDERED: LACT-373 PO (13:45)
[2025-07-24] MEDS ORDERED: PHYT5TAB30 PO (13:45)
[2025-07-24] MEDS ORDERED: COR3.125T PO (13:45)
[2025-07-24] MEDS ORDERED: URSO300C2 PO (13:45)
[2025-07-24] MEDS ORDERED: SULF1TAB49 PO (13:53)
[2025-07-24] MEDS ORDERED: pantoprazole 40mg Tablet.DR PO SCH (16:13)
[2025-07-24] MEDS ORDERED: diazepam inj 5 MG/ML inj. IV PRN (18:50)
--- NOTE | 2025-07-24 20:03 | DISCHARGE SUMMARY-Residence ---
Discharge Summary Providers to CC Resident Creating Document: JA RUBIO RES CC: ISABEL BRADFORD MD ~ Discharge Summary Admission Diagnosis: CIRROHSIS, FULIMANT LIVER Hospital Course DATE OF ADMISSION: 07/20/25 DATE OF DISCHARGE: 07/24/25 Discharge Diagnosis\Comment: Acute Decompsated Cirrhosis Sepsis on POA, Resolved hyponatremia , resolved hypokalemia resolved Macrocytic aneamia Alcohol use disoder Marijuana Use Disoder Asymtomatic UTI GERD Operations\Procedures: Paracentensis EGD Consultants: Dr. Wade Smith at [facility] [place] [place] Complications: None Condition on DC: Stable New Medications: Pantoprazole Sodium (PROTONIX tablet) 40 Mg Tablet.dr 40 MG PO BID, #60 TAB.SR Phytonadione (Vit K1) (Phytonadione) 5 Mg Tablet 1 TAB PO DAILY for 10 Days, #10 TAB 0 Refills Prednisone (Prednisone) 10 Mg Tablet 0 PO DAILY, #125 TABLET Take 6 tabs/day x3 days then 5 daily x7 days 4 daily x7 days 3 daily x7 days 2 daily x7 days 1 daily x7 days Spironolactone (Spironolactone) 25 Mg Tablet 25 MG PO DAILY, #30 TAB Sulfamethoxazole/Trimethoprim (Bactrim Ds Tablet) 800 Mg-160 Mg Tablet 1 EACH PO BID for 3 Days, #6 TAB Carvedilol (Carvedilol) 3.125 Mg Tablet 3.125 MG PO BID, #60 TAB Folic Acid* (Folic Acid*) Y Tab 1 MG PO DAILY, #30 TAB Lactulose (Lactulose) 10 Gram/15 Ml Solution 20 GM PO BID, #60 ML [thiamine tablet] () 100 MG TABLET 100 MG PO DAILY, #30 Ursodiol (Ursodiol) 300 Mg Capsule 300 MG PO Q12H, #60 CAP Discontinued Medications: Pantoprazole Sodium (PROTONIX tablet) 40 Mg Tablet.dr 1 TAB PO DAILY for 30 Days, #30 TAB 0 Refills Discharge Summary: Hospital Course This is 41 year old female with past medical history of GERD ,presented in ER with 2 week history of right upper quadrant abdominal pain. Initial workup showed leukocytosis, hyperbilirubinemia (direct bilirubin 10.3), elevated amylase and lipase. Abdominal ultrasound suggestive of hepatic steatosis and cirrhosis, CT imaging showed esophageal varices, multiple hepatic nodules, and portosystemic shunting. She denied any history of melena or hematemesis. She was evaluated for potential liver transplantation with Dr. Smith at [facility] [place] [place] for further plan and management, During her admission at [facility], she was started on carvedilol for esophageal variceal prophylaxis, ursodiol, prednisone, and antibiotics zoysn and merope nem. She also underwent a paracentesis. GI consulted which recommended EGD and patient had EGD done on 07/24/25. She remained hemodynamically stable and discharged with follow-up with GI for further management. Apart from that she was also counselled for alochol cessation and was placed on moderate alochol protocol. ED provider HU Manriquez had talked to Dr. Smith who agreed to accept the patient as long as patient's insurance will cover and assuming that patient does not have diagnosis of metastatic cancer. He wants cultures of urine, blood, and from ascites if possible. He wants zosyn as the antibiotic. He stated he will contact us on Wednesday or we can contact him on Wednesday for transfer. will need to talk to [facility] [place] [place] for transfer on Wednesday However facility at [facility] [place] [place] did not take patient as they said she dont qualify. Physical Examination General: awake, alert oriented to place, time, and person HEENT: Pallor present, eyes icteric improving, moist mucous membranes Neck: No masses and tenderness Resp: Unlabored. Lungs clear to auscultation bilaterally. Chest: Normal expansion, Multiple spinger agiomas noted. Cardiovascular: Regular Rate and rhythm, normal S1 and S2 without murmur, rub or gallop Abdomen: soft and non tender abdomen, no organomegaly, no guarding and rigidity, bowel sounds present, dullnes on percussion due to fluid. Neuro: No focal weaknesenders in the upper and lower limb muscles, power of the muscles 5/5 bilateral upper and lower extremities, normal reflexes bilaterally. Cranial nerves intact Extremities: No cyanosis,clubbing or edema MusculoSkeletal: No joint Deformities, No back tenderness. Skin: Warm and Dry. No lesions Psych: Normal affect Labs Test 07/23/25 06:21 07/24/25 06:02 White Blood Count 18.3 X10'3 16.5 X10'3 Red Blood Count 2.77 X10'6 2.67 X10'6 Hemoglobin 9.8 g/dl 9.5 g/dl Hematocrit 30.0 % 28.8 % Mean Corpuscular Volume 108.6 FL 107.8 FL Mean Corpuscular Hemoglobin 35.4 PG 35.5 PG Mean Corpuscular Hemoglobin Concent 32.6 g/dL 32.9 g/dL Red Cell Distribution Width 14.9 % 14.8 % Platelet Count 189 X10'3 200 X10'3 Mean Platelet Volume 8.2 FL 8.3 FL Neutrophils (%) (Auto) 80.4 % 81.5 % Lymphocytes (%) (Auto) 11.5 % 11.5 % Monocytes (%) (Auto) 7.4 % 6.7 % Eosinophils (%) (Auto) 0.1 % 0 % Basophils (%) (Auto) 0.6 % 0.3 % Neutrophils # (Auto) 14.8 X10'3 13.4 X10'3 Lymphocytes # (Auto) 2.1 X10'3 1.9 X10'3 Monocytes # (Auto) 1.4 X10'3 1.1 X10'3 Eosinophils # (Auto) 0.0 X10'3 0.0 X10'3 Basophils # (Auto) 0.1 X10'3 0.0 X10'3 CBC Comment Prothrombin Time 18.7 SECONDS 17.6 SECONDS INR International Normalized Ratio 1.9 INR 1.8 INR Coagulation Comments Sodium Level 137 MMOL/L 137 MMOL/L Potassium Level 4.1 MMOL/L 3.7 MMOL/L Chloride Level 107 MMOL/L 106 MMOL/L Carbon Dioxide Level 20.8 MMOL/L 22.2 MMOL/L Anion Gap 9 9 Blood Urea Nitrogen 9 MG/DL 8 MG/DL Creatinine 0.48 MG/DL 0.49 MG/DL Estimated GFR/1.73 m2 > 90 ML/MIN > 90 ML/MIN BUN/Creatinine Ratio 18.8 16.3 Glucose Level 152 MG/DL 143 MG/DL Calcium Level 8.4 MG/DL 8.5 MG/DL Phosphorus Level 2.7 MG/DL 3.1 MG/DL Magnesium Level 1.9 MG/DL 1.8 MG/DL Total Bilirubin 4.7 MG/DL 4.1 MG/DL Aspartate Amino Transf (AST/SGOT) 51 U/L 49 U/L Alanine Aminotransferase (ALT/SGPT) 18 U/L 19 U/L Alkaline Phosphatase 270 IU/L 267 IU/L Total Protein 6.4 G/DL 6.1 G/DL Albumin 1.7 G/DL 1.6 G/DL Globulin 4.7 G/DL 4.5 G/DL Albumin/Globulin Ratio 0.4 0.4 Amylase Level 126 U/L 123 U/L Lipase 341 U/L 287 U/L Chemistry Comments Imaging 07/20/25 CT Abdomen Pelvis: FINDINGS: There is small left pleural effusion. There is partial consolidation of the left lower lobe of the lung. There is mild dependent atelectasis in the right lower lobe. The spleen is not enlarged. The liver is enlarged. There are numerous hypoenhancing nodular masses throughout the liver concerning for diffuse hepatocellular disease versus metastatic disease. There is a moderate amount of ascites. There is gallbladder wall thickening, nonspecific. No calcified gallstone is identified. There is heterogeneous hypoenhancement of the head and uncinate process of the pancreas. The body and tail of the pancreas are unremarkable. The pancreatic duct is not dilated. There are prominent lower esophageal varices. The adrenal glands are normal. The kidneys enhance symmetrically. No solid renal mass is identified. There is no hydronephrosis of either kidney. There is no abdominal aortic aneurysm. The uterus and ovaries are within normal limits. There is a large venous portosystemic shunt from the portal vein to the retroperitoneum. No pathologic lymphadenopathy is identified by size criteria. There is thickening of proximal jejunal loops that may represent portal hypertensive enteropathy. The urinary bladder is decompressed and is not well evaluated. The colonic stool burden is small. The appendix is not seen. No acute osseous abnormality is identified. IMPRESSION: Hypoenhancing nodular masses throughout the liver concerning for diffuse hepatocellular disease versus metastatic disease. Liver MRI without and with contrast is recommended. Moderate ascites Esophageal varices and other portosystemic venous shunts are seen consistent with portal hypertension. Thickened proximal jejunum may represent portal hypertensive enteropathy. Small left pleural effusion. Partial consolidation of the left lower lobe. Addendum: 1 ADDENDUM # 1 Heterogeneous hypoenhancement of the pancreatic head and uncinate process. This can also be evaluated with MRI without and with contrast. Abdominal US: Hepatomegaly/hepatic steatosis. Small volume ascites. 07/21/25 CT ABDOMEN/PELVIS: 1. Extensive heterogeneity of the liver on pre and postcontrast images. No discrete arterially enhancing lesion or washout enhancement is seen on this exam to suggest a focal malignancy in the liver. Correlate with clinical findings. If clinically indicated, MRI could be considered. 2. Cirrhotic liver morphology. 3. Moderate ascites. 4. Small left pleural effusion. 5. Areas of wall thickening of the colon are nonspecific, possibly due to 3rd spacing of fluid. 6. Nonspecific nondilated fluid-filled small bowel loops. Findings may be seen with ileus or enteritis in the appropriate clinical setting. No small bowel obstruction. 7. Additional findings as detailed above. Procedure Paracentensis: Trace fluid. Too small for paracentecis. Discharge Instructions: Follow up with Dr. Odonnell GI doctor, you have an appointment with her on 08/01/2025 at 1:30 pm. CLINIC'S PHONE NUMBER IS [phone] You will need to set up an appointment to get a PCP you will be provided with list of doctors accepting your insurance. Please call and make an appointment to set up a PCP. Recommended strict abstinence from alcohol for at least six months to be considered for liver transplant. Talked to Dr. Odonnell regarding referral to see [facility] [place] [place] for possible liver transplant. Your EGD did not show any acute significant findings or active bleeding. It is recommended you take Protonix 40 p.o. b.i.d. for at least a month. Steroids to be tapered as prescribed: Take 6 tabs/day x3 days then 5 daily x7 days 4 daily x7 days 3 daily x7 days 2 daily x7 days 1 daily x7 days Take p.o. lactulose b.i.d.. We have started you on spironolactone 25 mg p.o. b.i.d. and Coreg 3.125 p.o. b.i.d. for your liver cirrhosis, these medications stent to drop blood pressure hence check blood pressure every morning and hold the medications for SBP less than 100 and heart rate less than 60. You have a UTI and hence we are discharging you on antibiotic Bactrim take it for three more days and then stop. Antibiotic Bactrim has a tendency to interact with Aldactone/spironolactone hence start spironolactone 25 p.o. daily, 3-4 days after you finish the course of Bactrim. Also take vitamin K 5 mg p.o. daily for 10 days and then stop. Recommended to have soft diet for a few days and then resume diet as tolerated. You has been worked up for acute liver cirrhosis, with concern of liver malignancy. Imaging findings are moved towards cirrhosis of liver, but malignancy has not been excluded hence it is recommended to follow up with your GI doctor for further workup and management. If condition worsens call 911 or go to the nearest ER immediately. *Problems/Diagnosis: (1) RUQ abdominal pain Status: Resolved Total Time Spent on D/C: > 30 Minutes Date of Service: Jul 24, 2025 Billing Provider: ISABEL BRADFORD MD, SANJAY, RES Jul 24, 2025 20:02
== END 2025-07-24 15:30 | disposition home or self-care (01) | DRG 720 ==
LOC: ER 11:15 → ED HOLD 19:01 → PCU 3S 23:00
PROVIDERS: ADMIT Family Medicine; ATTEND Family Medicine
PROC: BW211ZZ Computerized Tomography (CT Scan) of Abdomen and Pelvis using Low Osmolar Contrast (ICD-10-PCS; principal; 2025-07-20)
PROC: BW211ZZ Computerized Tomography (CT Scan) of Abdomen and Pelvis using Low Osmolar Contrast (ICD-10-PCS; 2025-07-21)
PROC: 0DB68ZX Excision of Stomach, Via Natural or Artificial Opening Endoscopic, Diagnostic (ICD-10-PCS; 2025-07-24)
DX: A41.9 Sepsis, unspecified organism (principal); R18.8 Other ascites; K74.60 Unspecified cirrhosis of liver; E87.1 Hypo-osmolality and hyponatremia; D53.9 Nutritional anemia, unspecified; E87.6 Hypokalemia; F12.90 Cannabis use, unspecified, uncomplicated; Z20.822 Contact with and (suspected) exposure to COVID-19; I85.10 Secondary esophageal varices without bleeding; N39.0 Urinary tract infection, site not specified; K76.6 Portal hypertension; K21.00 Gastro-esophageal reflux disease with esophagitis, without bleeding
CPT/HCPCS: 36415; 43239; 71045; 74177; 74178; 76700; 80053; 80061; 80305; 81001; 81025; 82103; 82140; 82150; 82248; 82607; 82728; 83036; 83540; 83605; 83615; 83690; 83735; 83880; 84100; 84132; 84145; 84466; 85007; 85025; 85610; 85730; 86705; 86803; 86885; 86900; 86901; 87040; 87077; 87081; 87088; 87186; 87340; 87517; 87522; 87811; 93005; 93306; 96365; 96367; 96375; 99152; 99285; A4615; C1729; G0378; J0169; J0696; J2185; J2250; J2470; J2543; J3010; J3411; J3430; J3490; J7030; J7040; J7120; J7512; Q9967